=== PATIENT | male | born 1970 | race Caucasian/White ===

== ENCOUNTER 2020-05-01 14:43 | Emergency (ER) | payer BC ==
[~2020-05-01] VITALS: Ht 185.4 cm; Wt 127.0 kg
--- NOTE | 2020-05-01 15:34 | RAD ---
EXAM: Chest and left ribs, 6 views. HISTORY: Fall. Pain. COMPARISON: None. FINDINGS: A frontal view the chest and 5 views of the left ribs are obtained. There is no infiltrate, pleural effusion or pneumothorax. The heart is normal in size. There is artifactual lucency traversi ng the medial 12th rib. /Or fracture is seen. IMPRESSION: No acute pulmonary or osseous finding. Electronically signed by: Wendy Trevino MD (05/01/2020 3:32 PM) [facility]
[2020-05-01 16:17] LABS: BACTERIA,URINE 0 /HPF (0-FEW); BILIRUBIN,URINE NEG (NEG); CLARITY,URINE CLEAR; COLOR,URINE YELLOW; GLUCOSE,URINE NEG (NEG); NITRITE,URINE NEG (NEG); RBC,URINE 0 /HPF (0-2); SQUAMOUS EPITHELIAL CELL,UR FEW /LPF; UROBILINOGEN,URINE 0.2 mg/dL (0.2 mg/dL)
[2020-05-01] MEDS ORDERED: IOHEXOL 300 MG/ML 75 ML VIAL. IV ONE (16:45)
--- NOTE | 2020-05-01 17:12 | PHYS DOC ---
General Adult EDM: Chief Complaint: MECHANICAL FALL HPI: HPI: Patient is a 49-year-old male who presents with left-sided rib pain. Patient states he fell out of the back of his truck onto the ground. When he fell he fell onto his side. Denies hitting his head or losing consciousness. (TRACEY ISRAEL APRN) Review of Systems: Review of Systems: Constitutional: Denies fever or chills Eyes: Denies change in visual acuity HENT: Denies nasal congestion or sore throat Respiratory: Denies cough or shortness of breath Cardiovascular: Denies chest pain or edema GI: Reports left-sided abdominal pain, denies nausea, vomiting, bloody stools or diarrhea : Denies dysuria Musculoskeletal: Reports left side pain, denies joint pain Integument: Denies rash Neurologic: Denies headache, focal weakness or sensory changes Endocrine: Denies polyuria or polydipsia Lymphatic: Denies swollen glands Psychiatric: Denies depression or anxiety (TRACEY ISRAEL APRN) Current Medications: Current Meds: Current Medications Medications (Trade) Dose Ordered Sig/Carmelo Start Time Stop Time Status Last Admin Dose Admin Iohexol (Omnipaque 300 Mg/ml) 75 ml 1X ONCE 05/01/20 16:45 05/01/20 16:46 DC (TRACEY ISRAEL APRN) Allergies: Allergies: Allergies Coded Allergies Type Severity Reaction Last Updated Verified No Known Drug Allergies 05/01/20 No (TRACEY ISRAEL APRN) Physical Exam: PE: Constitutional: Well developed, well nourished, no acute distress, non-toxic appearance. [] HENT: Normocephalic, atraumatic, bilateral external ears normal, oropharynx moist, no oral exudates, nose normal. [] Eyes: PERRLA, EOMI, conjunctiva normal, no discharge. [] Neck: Normal range of motion, no tenderness, supple, no stridor. [] Cardiovascular:Heart rate regular rhythm, no murmur [] Lungs & Thorax: Bilateral breath sounds clear to auscultation [] Abdomen: Bowel sounds normal, soft, no tenderness, no masses, no pulsatile masses. [] Skin: Warm, dry, no erythema, no rash. [] Back: No tenderness, no CVA tenderness. [] Extremities: No tenderness, no cyanosis, no clubbing, ROM intact, no edema. [] Neurologic: Alert and oriented X 3, normal motor function, normal sensory function, no focal deficits noted. [] Psychologic: Affect normal, judgement normal, mood normal. [] (TRACEY ISRAEL APRN) Current Patient Data: Labs: Laboratory Tests Test 05/01/20 15:23 Urine Collection Type Unknown Urine Color Yellow Urine Clarity Clear Urine pH 5.5 Urine Specific [place] >=1.030 Urine Protein 30 mg/dl (NEG-TRACE) Urine Glucose (UA) Neg mg/dL (NEG) Urine Ketones (Stick) Neg mg/dL (NEG) Urine Blood Neg (NEG) Urine Nitrite Neg (NEG) Urine Bilirubin Neg (NEG) Urine Urobilinogen Dipstick 0.2 mg/dL (0.2 mg/dL) Urine Leukocyte Esterase Neg (NEG) Urine RBC 0 /HPF (0-2) Urine WBC 1-4 /HPF (0-4) Urine Squamous Epithelial Cells Few /LPF Urine Bacteria 0 /HPF (0-FEW) Urine Mucus Mod /LPF (TRACEY ISRAEL APRN) EKG: EKG: [] (TRACEY ISRAEL APRN) Radiology/Procedures: Radiology/Procedures: []EXAM: Chest and left ribs, 6 views. HISTORY: Fall. Pain. COMPARISON: None. FINDINGS: A frontal view the chest and 5 views of the left ribs are obtained. There is no infiltrate, pleural effusion or pneumothorax. The heart is normal in size. There is artifactual lucency traversing the medial 12th rib. /Or fracture is seen. IMPRESSION: No acute pulmonary or osseous finding. Electronically signed by: Wendy Trevino MD (05/01/2020 3:32 PM) [place] (TRACEY ISRAEL APRN) Heart Score: Risk Factors: Risk Factors: DM, Current or recent (<one month) smoker, HTN, HLP, family history of CAD, obesity. Risk Scores: Score 0 - 3: 2.5% MACE over next 6 weeks - Discharge Home Score 4 - 6: 20.3% MACE over next 6 weeks - Admit for Clinical Observation Score 7 - 10: 72.7% MACE over next 6 weeks - Early Invasive Strategies (TRACEY ISRAEL APRN) Course & Med Decision Making: Course & Med Decision Making Pertinent Labs and Imaging studies reviewed. (See chart for details) 3 of ribs ordered to rule out rib fracture. FINDINGS: A frontal view the chest and 5 views of the left ribs are obtained. There is no infiltrate, pleural effusion or pneumothorax. The heart is normal in size. There is artifactual lucency traversing the medial 12th rib. /Or fracture is seen. Patient reporting left-sided abdominal pain. CT with contrast ordered. Pelvis Findings: Urinary bladder is normal. There is no pelvic or inguinal adenopathy. There is no acute bony abnormality. IMPRESSION: 1. Splenic subcapsular hematoma involving at least 50 percent of the surface area of the spleen. No laceration is identified. 2. Left renal subcapsular hematoma. No laceration is seen. 3. Mild perihepatic, perisplenic, and pelvic hemoperitoneum. No hepatic laceration or subcapsular hematoma. [facility] consulted. Dr. Nfef at is accepting physician. (TRACEY ISRAEL APRN) Course & Med Decision Making I oversaw on the above date of service of this patient and discussed the care with the PASTING INSPECTOR and off going physician who oversaw entirety of patient work-up. I agree with the findings, plan of care, and disposition as documented. Patient pending [facility] transfer at the start of my shift, patient stable throughout entirety of his stay under my watch and ultimately transferred via EMS in stable condition Sean Vicente DO Attending ED Physician (SEAN VICENTE DO) Leonid Disclaimer: Leonid Disclaimer: This electronic medical record was generated, in whole or in part, using a voice recognition dictation system. (TRACEY ISRAEL APRN) Departure Departure: Impression: Primary Impression: Spleen laceration Disposition: 09 ADMITTED INPT THIS HOSP Condition: STABLE Referrals: DAKSHA SPAIN MD (PCP) TRACEY ISRAEL APRN May 01, 2020 17:12 SEAN VICENTE DO May 02, 2020 21:07
[2020-05-01 17:21] LABS: BASO % 0 % (0-3); EOS % 0 % (0-3); HEMATOCRIT 39.2 % (39.0-53.0); HEMOGLOBIN 13.1 g/dL (13.0-17.5); LYMPH # 0.7 x10^3/uL (1.0-4.8); LYMPH % 5 % (24-48); MEAN CORPUSCULAR HEMOGLOBIN 31 pg (25-35); MEAN CORPUSCULAR HGB CONC 33 g/dL (31-37); MEAN CORPUSCULAR VOLUME 93 fL (79-100); MONO # 0.6 x10^3/uL (0.0-1.1); MONO % 5 % (0-9); NEUT # 12.4 x10^3uL (1.8-7.7); NEUT % 90 % (31-73); PLATELET COUNT 248 x10^3/uL (140-400); RED BLOOD COUNT 4.21 x10^6/uL (4.30-5.70); WHITE BLOOD COUNT 13.8 x10^3/uL (4.0-11.0)
[2020-05-01 17:31] LABS: CALCIUM 8.8 mg/dL (8.5-10.1); GFR 79.4; POTASSIUM 3.1 mmol/L (3.5-5.1)
[2020-05-01 17:36] LABS: ALBUMIN 3.9 g/dL (3.4-5.0); ALBUMIN/GLOBULIN RATIO 1.1 (1.0-1.7); TOTAL BILIRUBIN 0.4 mg/dL (0.2-1.0); TOTAL PROTEIN 7.3 g/dL (6.4-8.2)
--- NOTE | 2020-05-01 17:47 | RAD ---
CT ABDOMEN+PELVIS W History: Reason: LUQ abdominal pain, TRAUMA / Spl. Instructions: / History: Comparison: None. Technique: After administration of intravenous contrast, helical CT of the abdomen and pelvis was per formed from the lung bases through the ischial tuberosities. Coronal and sagittal reconstructions wer e obtained. 75 mL of Omnipaque 350 were used. One or more of the following dose reduction techniques were utilized: Automated exposure control (AEC), Adjustment of mA and/or kV according to patient size , Use of iterative reconstruction technique such as ASiR, CT scan done according to ALARA and image g ently/image wisely Abdomen Findings: The visualized lung bases are clear. The gallbladder, pancreas, and bilateral adrenal glands are normal. Mild perihepatic, perisplenic, and pelvic hemoperitoneum. No hepatic laceration is seen. Few small he patic hypodensities, too small to characterize but probably cysts. Lateral spleen subcapsular hematoma involving at least 50 percent of the surface area of the spleen a nd measuring 12.0 x 4.4 x 12.0 cm (AP by TV by CC). No large laceration defect is seen. Left posterior renal subcapsular hematoma measuring 6.0 x 1.8 x 9.8 cm (TV by AP by CC). Symmetric renal enhancement. There is no hydronephrosis. The visualized loops of small bowel are normal. The visualized loops of large bowel are normal. There is no evidence of bowel obstruction. Appendix is normal. There is no mesenteric or retroperitoneal adenopathy. The abdominal aorta is normal in caliber. Pelvis Findings: Urinary bladder is normal. There is no pelvic or inguinal adenopathy. There is no acute bony abnormality. IMPRESSION: 1. Splenic subcapsular hematoma involving at least 50 percent of the surface area of the spleen. No l aceration is identified. 2. Left renal subcapsular hematoma. No laceration is seen. 3. Mild perihepatic, perisplenic, and pelvic hemoperitoneum. No hepatic laceration or subcapsular hem atoma. FOR INTERNAL CODING PURPOSES Critical result: Findings discussed with the emergency department physician at 05/01/2020 5:33 PM. RESULT CODE: (C) Electronically signed by: Jax Galvan MD (05/01/2020 5:44 PM) [facility]
[2020-05-01] MEDS ORDERED: ONDANSETRON PF 4 MG/2 ML VIAL. IVP ONE (18:30)
[2020-05-01] MEDS ORDERED: IV NORMAL SALINE 1,000ML 1,000 ML IV ONE (18:30)
[2020-05-01 18:33] VITALS: BP 126/67
[2020-05-01 19:37] LABS: % BANDS 6 % (0-9); % LYMPHS 6 % (24-48); % MONOS 4 % (0-10); % SEGS 84 % (35-66); PLT ESTIMATE ADEQUATE (ADEQUATE)
== END 2020-05-01 18:59 | disposition short-term general hospital (02) ==
LOC: ER 14:43
DX: S36.039A Unspecified laceration of spleen, initial encounter (principal); R07.81 Pleurodynia; R10.9 Unspecified abdominal pain; W18.39XA Other fall on same level, initial encounter; Y93.89 Activity, other specified; Y92.89 Other specified places as the place of occurrence of the external cause; Y99.8 Other external cause status
CPT/HCPCS: 36415; 71101; 74177; 80053; 81001; 85007; 85025; 96361; 96374; 96375; 99285; J2405; J3010; J7030; Q9967

== ENCOUNTER → 2020-11-17 | Day surgery (SDC) | payer BC ==
[~2020-11-17] MED LIST: ATOR10TA60 PO; CHLO25TA9 PO; CHOL10004 PO; IPRATRPIUM/ALBUTEROL 0.5/2.5MG 3 ML NEBU. NEB PRN; IV RINGERS SOLUTION,LACTATED 1,000 ML IV SCH; LIDOCAINE 2% PF 5 ML VIAL. ONE; METF500T16 PO; METO-239 PO; MIDAZOLAM HCL PF 2 MG/2 ML VIAL. IV ONE; ONDANSETRON PF 4 MG/2 ML VIAL. IV PRN; POTA10TA17 PO; PROPOFOL 10,000 MCG/ML (20ML) VIAL IV ONE; VARE1TAB20 PO; VITA400C37 PO
[2020-11-17 12:26] VITALS: BP 137/81
== END | disposition home or self-care (01) ==
LOC: SURG 09:18
PROVIDERS: ATTEND Internal Medicine Gastroenterology
DX: Z12.11 Encounter for screening for malignant neoplasm of colon (principal); K64.8 Other hemorrhoids; K57.30 Diverticulosis of large intestine without perforation or abscess without bleeding; K63.5 Polyp of colon; K63.89 Other specified diseases of intestine; E78.00 Pure hypercholesterolemia, unspecified; G47.33 Obstructive sleep apnea (adult) (pediatric); E11.9 Type 2 diabetes mellitus without complications; F17.210 Nicotine dependence, cigarettes, uncomplicated; I10 Essential (primary) hypertension; E66.9 Obesity, unspecified; Z79.899 Other long term (current) drug therapy; Z79.84 Long term (current) use of oral hypoglycemic drugs; Z72.89 Other problems related to lifestyle
CPT/HCPCS: 45385; 82947; J2001; J2704